=== PATIENT | female | born 1950 | race African-American/Black ===

== ENCOUNTER → 2016-10-25 | Outpatient (CLI) | payer OTHER, MEDICAID | LOC: BHFA 13:00 | PROVIDERS: ATTEND Internal Medicine Cardiovascular Disease | DX: R07.9 Chest pain, unspecified (principal); I25.10 Atherosclerotic heart disease of native coronary artery without angina pectoris ==

== ENCOUNTER → 2016-10-29 | Outpatient (CLI) | payer OTHER, MEDICAID | LOC: BHFA 13:00 | PROVIDERS: ATTEND Internal Medicine Cardiovascular Disease | DX: R07.9 Chest pain, unspecified (principal); I25.10 Atherosclerotic heart disease of native coronary artery without angina pectoris | CPT/HCPCS: 78452; 93017; A9500; J2785 ==

== ENCOUNTER → 2016-11-19 | Outpatient (CLI) | payer OTHER, MEDICAID | LOC: CIMAGING 14:11 | PROVIDERS: ATTEND Internal Medicine Pulmonary Disease | DX: J44.9 Chronic obstructive pulmonary disease, unspecified (principal) | CPT/HCPCS: 71020-PO ==

== ENCOUNTER 2017-08-12 13:01 | Emergency (ER) | payer OTHER, MEDICAID ==
--- NOTE | 2017-08-12 13:11 | CPEKG ---
Heart Rate: 63 RR Interval: 952 P-R Interval: 196 QRSD Interval: 90 QT Interval: 404 QTC Interval: 414 P Sheridan: 57 QRS Sheridan: 2 T Wave Sheridan: 36 EKG Severity - NORMAL ECG - EKG Impression: SINUS RHYTHM Electronically Signed By: Rajendra Villavicencio 12-Aug-2017 21:23:59
--- NOTE | 2017-08-12 13:13 | EDPHY ---
HPI/HX/ROS/PE/MDM Narrative: CHIEF COMPLAINT:Chest pressure HPI: The patient is a 67-year-old female with a history of coronary artery disease status post stent several years ago who complains of approximately 1 week of intermittent chest tightness and pressure associated with shortness of breath. She states that the chest pressure has been present constantly for the last 2 days and is sometimes worse with exertion. She denies fever or cough. She states she has some pain that radiates from her scapula to the front of her left chest. REVIEW OF SYSTEMS: Aside from elements discussed in the HPI, a comprehensive 10-point review of systems was reviewed and is negative. PMH: Includes COPD, coronary artery disease status post RCA drug-eluting stent on 11/04/2015, anxiety, depression SOCIAL HISTORY:Raised in [place]. Denies drug abuse. PHYSICAL EXAM: General:Patient is alert, in no acute distress. ENT:Eyes are normal to inspection. ENT inspection normal. Neck: Normal inspection. Full range of motion. Respiratory:No respiratory distress. Breath sounds normal bilaterally. Cardiovascular: Regular rate and rhythm. Strong peripheral pulses. Normal cap refill. Abdomen:The abdomen is nontender to palpation. There are no peritoneal signs. There are normal bowel sounds. Back: Normal to inspection. No tenderness to palpation. Skin: Normal color. No rash. Warm and dry. Extremities: Normal appearance. Full range of motion. No significant edema or tenderness. Neuro: Oriented x3. Normal motor function. Normal sensory function. ED Course: EKG shows normal sinus rhythm without ST changes or T-wave inversion. On re-evaluation at 2:10 p.m., the patient feels much better. We discussed her workup including negative labs, EKG and chest x-ray. I explained to her that given her past medical history including coronary artery disease with stent, that her chest pain is moderate risk and I would recommend she be admitted to the hospital for telemetry monitoring and further workup. She adamantly declines this however and would like to go home. During this discussion the patient stated that her daughter is very sick from cancer and likely dying and she now realizes that her symptoms are probably due to anxiety. I explained to her that this is possible but her symptoms could be related to her heart. I agreed to provide her short course of Xanax to help with anxiety. Patient will follow up with a server manager next week. She promises to return to the emergency department for any worsening of condition. MDM: I see no signs of acute coronary syndrome, pneumonia, pneumothorax, thoracic aortic dissection, pulmonary embolus or sepsis. - Data Points Imaging Results: Imaging Impressions Chest X-Ray 08/12/17 13:16 Impression: No acute pulmonary disease. Chronic, stable airways disease. Laboratory Results: Laboratory Results 08/12/17 13:25 08/12/17 13:25 08/12/17 08/12/17 13:25 13:25 WBC 5.21 10^3/uL 10^3/uL (3.80-9.50) RBC 4.18 10^6/uL 10^6/uL (4.18-5.33) Hgb 12.9 g/dL g/dL (12.6-16.3) Hct 37.4 % L % (38.0-47.0) MCV 89.5 fL fL (81.5-99.8) MCH 30.9 pg pg (27.9-34.1) MCHC 34.5 g/dL g/dL (32.4-36.7) RDW 12.8 % % (11.5-15.2) Plt Count 205 10^3/uL 10^3/uL (150-400) MPV 9.3 fL fL (8.7-11.7) Neut % (Auto) 27.1 % L % (39.3-74.2) Lymph % (Auto) 60.7 % H % (15.0-45.0) Martin % (Auto) 8.3 % % (4.5-13.0) Eos % (Auto) 2.5 % % (0.6-7.6) Baso % (Auto) 1.2 % % (0.3-1.7) Nucleat RBC Rel Count 0.0 % % (0.0-0.2) Absolute Neuts (auto) 1.42 10^3/uL L 10^3/uL (1.70-6.50) Absolute Lymphs (auto) 3.16 10^3/uL H 10^3/uL (1.00-3.00) Absolute Monos (auto) 0.43 10^3/uL 10^3/uL (0.30-0.80) Absolute Eos (auto) 0.13 10^3/uL 10^3/uL (0.03-0.40) Absolute Basos (auto) 0.06 10^3/uL 10^3/uL (0.02-0.10) Absolute Nucleated RBC 0.00 10^3/uL 10^3/uL (0-0.01) Immature Gran % 0.2 % % (0.0-1.1) Immature Gran # 0.01 10^3/uL 10^3/uL (0.00-0.10) Sodium 140 mEq/L mEq/L (135-145) Potassium 4.0 mEq/L mEq/L (3.5-5.2) Chloride 110 mEq/L mEq/L (97-110) Carbon Dioxide 23 mEq/l mEq/l (22-31) Anion Gap 7 mEq/L L mEq/L (8-16) BUN 11 mg/dL mg/dL (7-23) Creatinine 0.8 mg/dL mg/dL (0.6-1.0) Estimated GFR > 60 Glucose 92 mg/dL mg/dL (70-100) Calcium 9.1 mg/dL mg/dL (8.5-10.4) Troponin I < 0.012 ng/mL ng/mL (0.000-0.034) Medications Given: Discontinued Medications Aspirin (Aspirin) 324 mg PO EDNOW ONE Stop: 08/12/17 13:48 Last Admin: 08/12/17 13:50 Dose: 324 mg General Time Seen by Provider: 08/12/17 13:11 Initial Vital Signs: Initial Vital Signs Temperature (C) 36.4 C 08/12/17 13:12 Heart Rate 60 08/12/17 13:12 Respiratory Rate 18 08/12/17 13:12 Blood Pressure 131/65 H 08/12/17 13:12 O2 Sat (%) 91 L 08/12/17 13:12 O2 Delivery Mode Room Air O2 (L/minute) 2 Allergies/Adverse Reactions: oseltamivir [From Tamiflu] Adverse Reaction (Verified 08/12/17 13:17) Home Medications: Medication Instructions Recorded Rosuvastatin Calcium [Crestor 20mg 20 mg PO DAILY 05/15/14 (*)] Bimatoprost 0.01% [Lumigan 0.01% 1 drops EACHEYE HS 11/03/15 (*)] Nebivolol HCl [Bystolic 5 mg (*)] 5 mg PO DAILY 11/03/15 Aspirin EC [Aspirin EC 81 mg (*)] 81 mg PO DAILY #0 tab 11/04/15 Lisinopril [Zestril 10 mg (*)] 10 mg PO BID 11/23/15 buPROPion XL [Wellbutrin 150mg XL] 150 mg PO BID 11/23/15 ALPRAZolam [Xanax 0.5 MG (*)] 0.5 mg PO Q8H PRN #10 tab 08/12/17 Departure - Departure Disposition: Home, Routine, Self-Care Clinical Impression: Chest pain Condition: Good Instructions: Chest Pain (ED) Additional Instructions: Follow-up with your primary doctor within 72 hours. Return to the Emergency Department for fever, chest pain, shortness of breath, increasing pain or other worsening of condition. Follow up with a server manager for further testing, as soon as possible, within one week. As we discussed, it is impossible to fully rule out heart disease as the cause of your chest pain in the emergency department. We would be happy to reevaluate you and observe you in the hospital at any time. Referrals: Cristiano Hill MD [Primary Care Provider] - As per Instructions Prescriptions: ALPRAZolam [Xanax 0.5 MG (*)] 0.5 mg PO Q8H PRN #10 tab PRN Reason: Anxiety
[2017-08-12 13:16] VITALS: TEMP 97.5
[2017-08-12 13:38] LABS: PLATELET COUNT 205 10^3/uL (150-400)
[2017-08-12] MEDS ORDERED: ONDANSETRON DISINTEGRATING 4 MG TAB PO ONE (13:44)
[2017-08-12] MEDS ORDERED: ASPIRIN 81 MG CHEWABLE TAB PO ONE (13:47)
[2017-08-12 14:33] VITALS: BP 136/64; PULSE 57; RESP 16; O2SAT 93
== END 2017-08-12 14:31 | disposition home or self-care (01) ==
LOC: CED 13:01
DX: R07.9 Chest pain, unspecified (principal); J44.9 Chronic obstructive pulmonary disease, unspecified; I25.10 Atherosclerotic heart disease of native coronary artery without angina pectoris; Z79.82 Long term (current) use of aspirin
CPT/HCPCS: 71046-PO; 80048-PO; 84484-PO; 85025-PO

== ENCOUNTER → 2017-11-28 | Outpatient (CLI) | payer OTHER, MEDICAID | LOC: CIMAGING 10:04 | PROVIDERS: ATTEND Ophthalmology | DX: Z03.89 Encounter for observation for other suspected diseases and conditions ruled out (principal) | CPT/HCPCS: 36415-PO; 71046-PO; 82164-90; 85549-90; 86812-90 ==

== ENCOUNTER → 2018-03-03 | Outpatient (CLI) | payer OTHER, MEDICAID | LOC: CIMAGING 12:40 | PROVIDERS: ATTEND Nurse Practitioner | DX: Z12.31 Encounter for screening mammogram for malignant neoplasm of breast (principal); Z80.3 Family history of malignant neoplasm of breast ==